=== PATIENT | female | born 1965 | race Asian ===

== ENCOUNTER 2018-11-20 17:59 | Emergency (ER) | payer OTHER ==
[~2018-11-20] VITALS: Ht 167.6 cm; Wt 76.2 kg
== END 2018-11-20 19:24 | disposition home or self-care (01) ==
LOC: ER 17:59
DX: L27.2 Dermatitis due to ingested food (principal); T78.1XXA Other adverse food reactions, not elsewhere classified, initial encounter; X58.XXXA Exposure to other specified factors, initial encounter